=== PATIENT | male | born 1995 ===

== ENCOUNTER 2021-09-18 16:18 | Emergency (ER) | payer SELFPAY ==
[~2021-09-18] VITALS: Ht 182.9 cm; Wt 59.0 kg
== END 2021-09-19 16:45 | disposition left against medical advice (07) ==
LOC: ER 16:18
DX: R55 Syncope and collapse (principal); Z53.21 Procedure and treatment not carried out due to patient leaving prior to being seen by health care provider
CPT/HCPCS: 99281